=== PATIENT | female | born 1940 | race Caucasian/White ===

== ENCOUNTER 2018-06-20 18:16 | Observation (INO) ==
[2018-06-20 18:54] LABS: Basophils # 0.1 10*3/uL (0.0-0.2); Basophils % 0.7 % (0.0-0.8); Eosinophils # 0.1 10*3/uL (0.0-0.87); Eosinophils % 1.5 % (0.00-10.9); Hematocrit 40.9 VOL% (35.7-47.0); Hemoglobin 13.4 GM/DL (12.0-16.0); Immature Granulocytes % 0.2 %; Immature Granulocytes Absolute 0.02 #; Lymphocytes # 3.6 10*3/uL (1.4-4.0); Lymphocytes % 38.2 % (21.3-54.2); Mean Corpuscular HGB Conc 32.8 GM/DL (32-36); Mean Corpuscular Volume 93.4 FL (87-102); Mean Platelet Volume 10.6 FL (9.6-12.0); Monocytes % 7.3 % (1.7-12.7); Neutrophils % 52.1 % (38.7-73.9); Platelet Count 269 T/CUMM (130-400); Red Blood Count 4.38 MC/CUMM (3.8-5.5); Red Cell Distribution Width 12.7 % (9.3-17.3); White Blood Count 9.4 T/CUMM (4-12)
[2018-06-20 19:05] LABS: Alanine Aminotransferase 15 U/L (13-56); Alkaline Phosphatase 46 U/L (45-117); Aspartate Amino Transferase 14 U/L (0-37); Bilirubin,Total < 0.39 MG/DL (0.2-1.0); Blood Urea Nitrogen 18 MG/DL (7-18); Calcium 10.2 MG/DL (8.5-10.1); Glucose 94 MG/DL (74-106); Osmolality,Calculated 280.4 MOS/KG (273-304); Total Protein 7.7 G/DL (6.4-8.3)
[2018-06-20 19:06] LABS: PT Patient Result 10.7 SECS
[2018-06-20 22:51] LABS: Risk Ratio 2.07; VLDL CHOLESTEROL 10.6 MG/DL
[2018-06-21] MEDS: ENOXAPARIN 40 MG/0.4 ML SYRINGE SUBCUT SCH ×2 (01:51→22:30)
[2018-06-21] MEDS: ASPIRIN EC 81 MG TABLET PO SCH (09:17)
[2018-06-21] MEDS ORDERED: NITROGLYCERIN SL 0.4 MG TABLET SL PRN (10:27)
[2018-06-21] MEDS ORDERED: POTASSIUM CHLORIDE RIDER 10 MEQ in PREMIX 1 EACH IV PRN (10:42)
[2018-06-21] MEDS ORDERED: MAGNESIUM SULF RIDER 2 GM in PREMIX 1 EACH IV PRN (10:42)
[2018-06-21] MEDS: amLODIPine 10 MG TABLET PO SCH (11:17)
[2018-06-21] MEDS: LOSARTAN 25 MG TABLET PO SCH (11:17)
[2018-06-21] MEDS ORDERED: ALPRAZolam 0.25 MG TABLET PO PRN (14:44)
[2018-06-21] MEDS ORDERED: ATORVASTATIN 20 MG TABLET PO SCH (21:00)
[2018-06-22 04:32] LABS: Basophils # 0.1 10*3/uL (0.0-0.2); Basophils % 0.6 % (0.0-0.8); Eosinophils # 0.2 10*3/uL (0.0-0.87); Hematocrit 37.6 VOL% (35.7-47.0); Hemoglobin 11.8 GM/DL (12.0-16.0); Immature Granulocytes % 0.2 %; Immature Granulocytes Absolute 0.02 #; Lymphocytes # 2.6 10*3/uL (1.4-4.0); Lymphocytes % 31.2 % (21.3-54.2); Mean Corpuscular HGB Conc 31.4 GM/DL (32-36); Mean Corpuscular Volume 95.7 FL (87-102); Mean Platelet Volume 10.4 FL (9.6-12.0); Monocytes % 9.4 % (1.7-12.7); Neutrophils % 56.6 % (38.7-73.9); Platelet Count 249 T/CUMM (130-400); Red Blood Count 3.93 MC/CUMM (3.8-5.5); Red Cell Distribution Width 12.8 % (9.3-17.3); White Blood Count 8.4 T/CUMM (4-12)
[2018-06-22] MEDS ORDERED: DIAZEPAM 5 MG TABLET PO ONE (06:00)
[2018-06-22] MEDS ORDERED: diphenhydrAMINE CAP 25 MG CAPSULE PO ONE (06:00)
[2018-06-22] MEDS: SODIUM CHLORIDE 0.9% 1,000 ML IV SCH ×2 (07:08→15:28)
[2018-06-22] MEDS: LOSARTAN 25 MG TABLET PO SCH (09:21)
[2018-06-22] MEDS: ASPIRIN EC 81 MG TABLET PO SCH (09:21)
[2018-06-22] MEDS: amLODIPine 10 MG TABLET PO SCH (09:21)
[2018-06-22] MEDS ORDERED: LIDOCAINE 1% 20 ML VIAL ONE (10:02)
[2018-06-22] MEDS ORDERED: VERAPAMIL 5 MG/2 ML VIAL ONE (10:24)
[2018-06-22] MEDS ORDERED: fentaNYL 100 MCG/2 ML VIAL ONE (10:46)
[2018-06-22] MEDS ORDERED: MIDAZOLAM 2 MG/2 ML VIAL ONE (10:46)
[2018-06-22] MEDS ORDERED: ENOXAPARIN 30 MG/0.3 ML SYRINGE ONE (10:58)
[2018-06-22 16:06] VITALS: BP 80/50
== END 2018-06-22 16:57 | disposition home or self-care (01) ==
LOC: N.EDINP 18:16 → N.ED 18:16 → N.TELES 23:02
PROVIDERS: ADMIT Internal Medicine; ATTEND Internal Medicine
PROC: CLCCHCL (ICD-10-PCS; 2018-06-22 10:45)